=== PATIENT | male | born 2005 | race Two or more races ===

== ENCOUNTER 2024-12-25 16:14 | Emergency (ER) | payer MEDICAID, SELFPAY ==
[2024-12-25 16:28] VITALS: BP 122/107; PULSE 88; RESP 18; TEMP 37.1; O2SAT 98
--- NOTE | 2024-12-25 16:39 | EDNOTE_ITS ---
Nausea/Vomit./Diarrhea-RME/HPI General Chief complaint: Nausea/Vomiting/Diarrhea Stated complaint: [facility] CLEARANCE Time Seen by Provider: 12/25/24 16:33 Arrival date/time: 12/25/24 16:14 Limitations: no limitations RME / HPI RME / HPI Narrative: 19-year-old male with a history of acid reflux is brought in by local law enforcement for medical clearance. When they checked his vital signs [employer], he had a temp of 100.5 Fahrenheit so he was routed here. Patient states he has a 6-month history of epigastric pain. States he was admitted [facility] 6 months ago for his acid reflux and had endoscopy. He states he is not taking any of his prescribed medications. He does endorse lower GI bleed. States he has bright red blood with bowel movements daily. He states he drinks alcohol 2-3 times a week, when he does drink alcohol, he drinks 24 beers at a time. He states he used to use cocaine but has not used that in 6 months. He denies any other chronic medical illness. Denies any drug allergies. Related Data Previous Rx's ?Medication ?Instructions ?Recorded omeprazole 40 mg capsule,delayed 40 mg PO QDAY #30 cap s 12/25/24 release Review of Systems Review of Systems Systems Reviewed: All systems reviewed, normal except as documented ED Exam General Limitations: Present no limitations General appearance: Present alert Head Head exam: Present atraumatic Eye Eye exam: Present normal appearance, PERRL and EOMI ENT ENT exam: Present normal exam, normal oropharynx and mucous membranes moist Neck Neck exam: Present normal inspection, full ROM and trachea midline Chest Chest inspection: Present normal inspection and symmetric chest wall rise Respiratory Respiratory exam: Present normal lung sounds bilaterally Cardiovascular Cardiovascular exam: Present regular rate, normal rhythm and normal heart sounds Abdominal Exam Abdominal exam: Present soft and normal bowel sounds; Absent distention, guarding, rebound or rigidity Rectal Exam Rectal exam: Present normal inspection, normal rectal tone, heme (-) stool and other (Exam performed with male tech present. Please officer present during the exam.) Extremities Exam Extremities exam: Present normal inspection and full ROM Back Exam Back exam: Present normal inspection and full ROM Neurological Exam Neurological exam: Present alert, oriented X3 and CN II-XII intact Psychiatric Psychiatric exam: Present normal affect and normal mood Skin Skin exam: Present warm, dry, intact and normal color Course Quality Measures none Orders Category Date Time Status Occult Blood,Stool (Nursing) ONCE Care 12/25/24 16:34 Active Alcohol, Blood Medical Stat Lab 12/25/24 17:26 Completed CBC Stat Lab 12/25/24 17:26 Completed CMP [Comprehensive Metabolic Panel] Stat Lab 12/25/24 17:26 Completed Drug Screen,Urine Stat Lab 12/25/24 17:40 Completed Lipase Stat Lab 12/25/24 17:26 Completed UA [Urinalysis] Stat Lab 12/25/24 17:40 Completed Famotidine [Pepcid] Med 12/25/24 16:33 Pending 20 mg PO X1 ONE Ondansetron Odt [Zofran Odt] Med 12/25/24 16:33 Pending 4 mg PO X1 ONE Pantoprazole [Protonix] Med 12/25/24 16:33 Pending 40 mg PO X1 ONE Vital Signs Vital signs: Vital Signs Temperature 98.8 F 12/25/24 16:28 Pulse Rate 88 12/25/24 16:28 Respiratory Rate 18 12/25/24 16:28 Blood Pressure 122/107 H 12/25/24 16:28 Pulse Oximetry (%) 98 12/25/24 16:28 Oxygen Delivery Method Room Air 12/25/24 16:28 Nausea/Vomiting/Diarrhea MDM Narrative MDM Narrative:: 19-year-old male who is brought in for medical screening exam is here today with belly pain. He states she has had chronic epigastric pain since approximately July this year. He states he was admitted in the past at another hospital had endoscopy. He is not take any medications. He states he has a history of ulcers but no other chronic medical illness. His CBC reveals no leukocytosis and his H&H is stable. Metabolic panel reveals mildly elevated liver enzymes, ALT is 56, alk phos is 119. Patient was restarted on a proton pump inhibitor. He is medically cleared for police custody. Patient data External records reviewed:: None Clinical information provided by:: patient Social determinants that could affect healthcare access:: none Patient has the following chronic illnesses:: GERD How is presenting disease/condition affected by chronic disease/condition?: exacerbated by Evaluation data The following diagnostics were reviewed and interpreted by me:: lab results Lab and/or radiology exams considered but not ordered:: n/a Interpretation Summary: Mild leukocytosis, H&H is stable Medications / Prescriptions Medications / Prescriptions considered but not ordered:: n/a Medication administrations:: Medication Administration History Famotidine (Famotidine 20 Mg Tablet) 20 mg PO X1 ONE Stop: 12/25/24 16:34 Ondansetron HCl (Ondansetron Odt 4 Mg Tabrap) 4 mg PO X1 ONE; Protocol Stop: 12/25/24 16:34 Pantoprazole Sodium (Pantoprazole 40 Mg Tablet) 40 mg PO X1 ONE Stop: 12/25/24 16:34 see above Consultations Consultation(s) initiated? (list below): No Diagnosis Nausea Differential Diagnosis: gastroenteritis and dehydration Most likely diagnosis given after review of the tests above:: GERD Admission Indicated Admission indicated?: indicated Admission Request Was there a request for admission?: No Disposition Plan Disposition Plan: Discharge Discharge Attestation Discharge Attestation: The patient and all family members were given an opportunity to ask questions and understood the discharge instructions. Discharge instructions specifically effects, indications for sooner follow up or return to the emergency department, and the expected course of current diagnosis. Patient condition: Stable Discharge Plan Plan Patient Disposition: Senior Living/Court/Law Patient condition on transfer: Stable Prescriptions/Referrals Prescriptions/Med Rec: New omeprazole 40 mg capsule,delayed release(DR/EC) 40 mg PO QDAY Qty: 30 0RF Referrals: No Primary/Family,Physician [Primary Care Provider] - In 1 week Problem List Clinical Impression: Chronic GERD Patient/Caregiver Discharge Instructions Education Materials: ED GERD (Adult) Additional Instructions: Restart a daily proton pump inhibitor. Prescription is provided. Follow-up with your primary doctor as needed. Return to the emergency room as needed for any worsening or emergent changes. You are medically cleared for police custody. Print Language: Kenyan
[2024-12-25 17:42] LABS: Basophils # (Auto) 0.1 Thou/mm3 (0.0-0.2); Basophils % (Auto) 1 % (0-2.5); Eosinophils % (Auto) 0 % (0-10); Hemoglobin 16.5 g/dL (13.5-16.0); Immature Granulocytes % (Auto) 0 % (0-0); Immature Granulocytes Auto 0.05 Thou/mm3 (0.00-0.00); Lymphocytes # (Auto) 0.7 Thou/mm3 (1.0-4.8); Lymphocytes % (Auto) 6 % (10-50); Mean Corpuscular HGB Conc 35.1 g/dl (31.0-37.0); Mean Corpuscular Hemoglobin 31.4 pg (25.0-35.0); Mean Corpuscular Volume 90 fL (80-100); Monocytes # (Auto) 0.6 Thou/mm3 (0.0-0.8); Monocytes % (Auto) 5 % (0-12); Neutrophils # (Auto) 11.3 Thou/mm3 (1.8-7.7); Neutrophils % (Auto) 88 % (37-80); Nucleated Red Blood Cell % 0 /100 WBC (0); Platelet Count 240 Thou/mm3 (140-440); RDW Standard Deviation 42.8 fL (35.1-43.9); Red Blood Count 5.25 Miln/mm3 (4.50-5.90); White Blood Count 12.8 Thou/mm3 (4.5-11.0)
[2024-12-25 17:57] LABS: Alanine Aminotransferase 56 U/L (10-49); Albumin, Serum 4.8 gm/dL (3.5-5.0); Albumin/Globulin Ratio 1.9 (1.2-2.2); Alcohol, Blood Medical < 3.0 mg/dL (0-10.0); Alkaline Phosphatase 119 U/L (46-116); Anion Gap 8 (7-16); Aspartate Amino Transferase 29 U/L (0-34); BUN/Creatinine Ratio 8 Ratio (12-20); Bilirubin,Total 0.7 mg/dL (0.3-1.2); Blood Urea Nitrogen 8 mg/dL (9-23); Calcium 9.7 mg/dL (8.3-10.6); Calcium (Corrected) 9.7 mg/dL (8.5-10.1); Carbon Dioxide 27.7 mMol/L (20.0-31.0); Chloride 105 mMol/L (98-107); Globulin 2.5 gm/dL (2.3-3.5); Glucose 106 mg/dL (74-106); Lipase 23 U/L (12-53); Osmolality,Calculated 279 (275-295); Potassium 4.2 mMol/L (3.4-5.1); Sodium 141 mMol/L (136-145); Total Protein 7.3 gm/dL (5.7-8.2); eGFR > 60 See Note
[2024-12-25 18:01] VITALS: BMI 34.8
[2024-12-25 18:08] LABS: Collection Type, Urine Voided
[2024-12-25 18:32] LABS: Bacteria,Urine Rare; Bilirubin,Urine Negative (Negative); Blood,Urine Negative (Negative); Clarity,Urine Clear (Clear/Hazy); Color,Urine Yellow (Lt Yel-Yel); Glucose, Urine Negative (Negative); Ketones,Urine Negative (Negative); Leukocyte Esterase,Urine Negative (Negative); Nitrite,Urine Negative (Negative); Protein,Urine Trace (Neg - Trace); RBC,Urine 3 /hpf (0-3); Specific Gravity,Urine 1.023 (1.001-1.035); Squamous Epithelial Cell,Urine < 1 /hpf (0-5); Urobilinogen,Urine Negative mg/dL (0.0-1.0); WBC,Urine 1 /hpf (0-5)
[2024-12-25 18:42] LABS: Amphetamine/Methamp Scrn,U Negative (Negative); Barbiturate Screen,Urine Negative (Negative); Benzodiazepines Screen,Urine Negative (Negative); Benzoylecgonine Screen, Ur Negative (Negative); Fentanyl Screen,Urine Negative (Negative); Opiate Screen,Urine Negative (Negative); THC Screen,Urine Positive (Negative)
[2024-12-25 19:27] VITALS: BP 163/93; PULSE 87; RESP 17; O2SAT 99
== END 2024-12-25 19:31 ==
PROVIDERS: Physician Assistant Medical; Emergency Provider Family Medicine
DX: K21.9 Gastro-esophageal reflux disease without esophagitis (principal)
CPT/HCPCS: 36415; 80053; 80307; 80320; 81001; 83690; 85025; 99283; G0480

== ENCOUNTER 2024-12-25 23:57 | Emergency (ER) | payer MEDICAID, SELFPAY ==
[2024-12-26] VITALS (7 sets, daily range): BP systolic 118–154; BP diastolic 68–89; PULSE 50–73; RESP 16–18; TEMP 36.6–37.2; O2SAT 94–99; BMI 29.0
--- NOTE | 2024-12-26 03:46 | EKG_ITS ---
[facility] Test Date: 2024-12-26 Pat Name: ROX TRIPP Department: Room: - Gender: Male Instrument/Control Technician: : 2005 Requested By: Faith Marroquin Order Number: [id number] Reading MD: Faith Marroquin Measurements Intervals [place] Rate: 54 P: -9 VT: 122 QRS: 71 QRSD: 97 T: 56 QT: 447 QTc: 425 Interpretive Statements SINUS BRADYCARDIA WITH SINUS ARRHYTHMIA No previous ECG available for comparison /store/S0/[id number]/ecg/[id number].pdf
--- NOTE | 2024-12-26 03:46 | PD.EDABDPN ---
ED Abdominal Pain RME/HPI General Chief Complaint: Abdominal Pain Stated complaint: VOMITING BLOOD Arrival date/time: 12/25/24 23:57 RME / HPI RME / HPI narrative: DR BREEN MAIN ED EVALUATION: 19 y/o male with Hx of GERD BIB [facility] from [facility] presents to ED c/o chest and epigastric abdominal pain with multiple events of vomiting blood x just [employer]. Patient also reports dark and foul smelling urine. Patient was seen earlier today but was discharged without medication. Denies dysuria. Patient denies bloody stool, tarry stool or any other associated symptoms or aggravating factors. No modifying factors, no radiation, no migration. No pain reported overall. No other concerns or complaints expressed at this time. Related Data Previous Rx's ?Medication ?Instructions ?Recorded omeprazole 40 mg capsule,delayed 40 mg PO QDAY #30 caps 12/25/24 release Allergies Allergy/AdvReac Type Severity Reaction Status Date / Time No Known Allergies Allergy Verified 12/26/24 04:39 Review of Systems Review of Systems Systems Reviewed: All systems reviewed, normal except as documented Past Medical History Past Medical History GASTROINTESTINAL: Positive Gastroesophageal Reflux Disease Social History SMOKING STATUS: Current every day smoker ED Exam Narrative Physical exam: GENERAL APPEARANCE: alert and oriented x 4, well-developed, well-nourished, no acute distress VITALS: All vitals were reviewed and the pulse ox is 99% on room air, which is normal according to my interpretation. HEENT: Normocephalic, atraumatic; pupils equal, round, reactive to light; EOMI; mucous membranes pink, moist; oropharynx clear NECK: Supple LUNGS: CTABL; no wheezes, no rales, no rhonchi HEART: Regular rate, regular rhythm; normal S1, S2; no murmurs ABDOMEN: non distended; normal BS; soft, mild epigastric tenderness, no guarding, no rebound; no masses, no organomegaly, no hernia BACK: no CVA tenderness EXTREMITIES: atraumatic; no edema NEUROLOGIC: awake; alert and oriented x4; cranial nerves II-XII grossly intact; no focal sensory or motor deficits PSYCHIATRIC: appropriate mood and affect SKIN: warm, dry, normal color; no rashes Course Quality Measures none Orders Category Date Time Status CT Screening NOW Care 12/26/24 06:04 Active EKG (ED ONLY) *Do not use* NOW Care 12/26/24 03:46 Completed IV [Insert IV] NOW Care 12/26/24 04:52 Active Occult Blood,Stool (Nursing) NOW Care 12/26/24 03:[address] abdomen pelvis w con Stat Exams 12/26/24 06:04 Ordered EKG (ED Only) Stat Exams 12/26/24 03:46 Draft CBC Stat Lab 12/26/24 04:45 Completed CMP [Comprehensive Metabolic Panel] Stat Lab 12/26/24 04:45 Completed Lipase Stat Lab 12/26/24 04:45 Completed PT [Prothrombin Time with INR] Stat Lab 12/26/24 04:45 Completed PTT [Partial Thromboplastin Time] Stat Lab 12/26/24 04:45 Completed Troponin I Stat Lab 12/26/24 04:45 Completed Type and Screen Stat Lab 12/26/24 04:45 Completed UA, C/S IF [Urinalysis, C/S if Indicated] Stat Lab 12/26/24 03:48 Ordered Pantoprazole Inj [Protonix Inj] Med 12/26/24 03:47 Discontinued 80 mg IVP X1 ONE Pantoprazole/Ns 80Mg IV Premix [Protonix/NS 80mg IV Med 12/26/24 03:47 Active Premix] 80 mg in 100 ml IV X1 Vital Signs Vital signs: Vital Signs Temperature 98.5 F 12/26/24 00:00 Pulse Rate 67 12/26/24 00:00 Respiratory Rate 17 12/26/24 00:00 Blood Pressure 154/89 H 12/26/24 00:00 Pulse Oximetry (%) 99 12/26/24 00:00 Oxygen Delivery Method Room Air 12/26/24 00:00 Abdominal Pain MDM MDM Narrative MDM Narrative:: Scribe Attestation: I, Irais Ordoñez am scribing for and in the presence of Dr. Breen. Provider Notation: Although this document has been carefully reviewed, there may still be some phonetic and other typographical errors.? These errors are purely grammatical due to imperfections in the software program and should not be construed in any way to? compromise the substance of the patient's medical care during this visit. 0600: Care signed out to [facility] day shift provider. Past medical, surgical, social and family history reviewed. Vitals and home medications reviewed. Results and treatment plan discussed. They will assume the care of the patient at this time and will follow the patient, pending CT and final disposition. Patient data External records reviewed:: [facility] previous records (Reviewed records from 12/25/24. Patient was seen for Chronic GERD.) and Other (specify) ([employer]) Clinical information provided by:: patient and law enforcement Social determinants that could affect healthcare access:: housing (Incarceration) Patient has the following chronic illnesses:: GERD How is presenting disease/condition affected by chronic disease/condition?: exacerbated by Evaluation data The following diagnostics were reviewed and interpreted by me:: lab results and EKG tracing(s) (EKG manual reading, my interpretation: sinus bradycardia, rate: 54 bpm, no ST elevation, no acute ischemic changes, interpreted as normal) Lab and/or radiology exams considered but not ordered:: None Interpretation Summary: Refer to MDM Medications / Prescriptions Medications or Prescriptions considered but not ordered:: None Medication administrations:: Medication Administration History Pantoprazole Sodium (Protonix/Ns 80mg Iv Premix) 80 mg in 100 mls @ 10 mls/hr IV X1 ONE Stop: 12/26/24 13:46 Last Admin: 12/26/24 05:00 Dose: 10 mls/hr Documented By: CVL Discontinued Medications Pantoprazole Sodium (Pantoprazole Inj 40 Mg Vial) 80 mg IVP X1 ONE Stop: 12/26/24 03:48 Last Admin: 12/26/24 04:59 Dose: 80 mg Documented By: CVL See above if any Consultations Consultation(s) initiated? (list below): No Diagnosis Differential diagnosis abdominal pain: abdominal pain, acute appendicitis, constipation, diverticulitis, gastroenteritis, pancreatitis, small bowel obstruction and other (Gastritis, GERD with exacerbation, Peptic Ulcer) Most likely diagnosis given after review of the tests above:: Hematemesis Admission Indicated Admission indicated?: not indicated Explain why admission is indicated or not indicated:: Pending CT. Admission Request Was there a request for admission?: No Disposition Plan Disposition Plan: other (specify) (Sign-out to oncoming ED physician at 6 AM.) Discharge Plan Prescriptions/Referrals Prescriptions/Med Rec: No Action omeprazole 40 mg capsule,delayed release(DR/EC) 40 mg PO QDAY Qty: 30 0RF Referrals: No Primary/Family,Physician [Primary Care Provider] - In 1 week Problem List Clinical Impression: Hematemesis Patient/Caregiver Discharge Instructions Print Language: Chinese
[2024-12-26] MEDS: PANTOPRAZOLE INJ 40 MG VIAL 80 MG IVP (04:59)
[2024-12-26] MEDS: PANTOPRAZOLE/NS 80MG IV PREMIX 80 MG/100 ML BAG 10 MG IV (05:00)
[2024-12-26 05:05] LABS: Basophils % (Auto) 0 % (0-2.5); Eosinophils % (Auto) 0 % (0-10); Hematocrit 46.8 % (41.0-53.0); Hemoglobin 16.6 g/dL (13.5-16.0); Immature Granulocytes % (Auto) 0 % (0-0); Immature Granulocytes Auto 0.03 Thou/mm3 (0.00-0.00); Lymphocytes # (Auto) 1.5 Thou/mm3 (1.0-4.8); Lymphocytes % (Auto) 18 % (10-50); Mean Corpuscular HGB Conc 35.5 g/dl (31.0-37.0); Mean Corpuscular Hemoglobin 31.3 pg (25.0-35.0); Mean Corpuscular Volume 88 fL (80-100); Monocytes # (Auto) 0.7 Thou/mm3 (0.0-0.8); Monocytes % (Auto) 8 % (0-12); Neutrophils # (Auto) 6.1 Thou/mm3 (1.8-7.7); Neutrophils % (Auto) 72 % (37-80); Nucleated Red Blood Cell % 0 /100 WBC (0); Platelet Count 245 Thou/mm3 (140-440); RDW Standard Deviation 43.2 fL (35.1-43.9); Red Blood Count 5.31 Miln/mm3 (4.50-5.90); White Blood Count 8.4 Thou/mm3 (4.5-11.0)
[2024-12-26 05:21] LABS: Partial Thromboplastin Time 27.9 Seconds (22.0-36.0); Prothrombin Time 11.4 Seconds (9.0-12.2)
[2024-12-26 05:24] LABS: Alanine Aminotransferase 56 U/L (10-49); Albumin, Serum 5.2 gm/dL (3.5-5.0); Alkaline Phosphatase 125 U/L (46-116); Anion Gap 10 (7-16); Aspartate Amino Transferase 27 U/L (0-34); BUN/Creatinine Ratio 9 Ratio (12-20); Bilirubin,Total 0.8 mg/dL (0.3-1.2); Blood Urea Nitrogen 10 mg/dL (9-23); Calcium 10.1 mg/dL (8.3-10.6); Calcium (Corrected) 10.1 mg/dL (8.5-10.1); Carbon Dioxide 29.2 mMol/L (20.0-31.0); Chloride 102 mMol/L (98-107); Creatinine (Component) 1.1 mg/dL (0.6-1.3); Estimated Creatinine Clearance 107.5 mL/min (>60); Globulin 2.6 gm/dL (2.3-3.5); Glucose 102 mg/dL (74-106); Lipase 26 U/L (12-53); Osmolality,Calculated 280 (275-295); Potassium 4.1 mMol/L (3.4-5.1); Sodium 141 mMol/L (136-145); Total Protein 7.8 gm/dL (5.7-8.2); Troponin I < 0.002 ng/mL (0.0-0.045); eGFR > 60 See Note
--- NOTE | 2024-12-26 05:45 | PC.NURSE ---
PT IS INCARCERATED, WHILE IN RETIREMENT PT C/O ABD PAIN AND BEEN VOMITING WITH BLOOD, WAS ALREADY SEEN EARLIER IN ER.
--- NOTE | 2024-12-26 06:04 | XR_ITS ---
Examination: CT abdomen with intravenous contrast CT pelvis with intravenous contrast 2-D coronal reconstructions 2-D sagittal reconstructions Date and time of exam:December 26, 2024 0809 hours INDICATIONS: Abdominal pain vomiting blood today. CTDI: vol (mGy) 11.1 DLP: (mGycm) 685 Technique: Multiple axial sections of the abdomen and pelvis have been obtained. 64 slice high-resolution scanner used. 3 mm axial sections have been obtained, post intravenous injection 60 cc Isovue-370 2-D sagittal, coronal reconstructions obtained. Low dose protocols were performed. One or more of the following dose reduction techniques were used; automated exposure control, adjustment of the mA and/or KV according to patient size, use of iterative reconstruction technique. Findings: No aspiration pneumonia No focal liver or splenic lesions No gallstones No pancreatic or adrenal mass No renal or ureteral calculi, no hydronephrosis Aorta normal size Tiny fat-containing umbilical hernia Normal appendix No bowel obstruction Colonic diverticulosis, no diverticulitis Urinary bladder intact No prostatomegaly IMPRESSION: No aspiration pneumonia Negative for pancreatitis Normal appendix Colonic diverticulosis, no diverticulitis
--- NOTE | 2024-12-26 07:05 | PD.EDADDENDU ---
Emergency Room Addendum Addendum Narrative: 0600: Care assumed from Dr. Breen, the previous shift emergency physician. Past medical, surgical, social and family history reviewed. Vitals and home medications reviewed. I will assume the care of the patient at this time, pending diagnostic tests and final disposition. Please refer to the emergency department record for history and examination from initial visit.? Physical exam by me shows patient under no acute distress at this time. Plan to discharge on pepsin and zofran. 0938: Patient remains clinically stable throughout the emergency department visit. Re-assessment at the time of disposition demonstrates that the patient is in no acute distress. We reviewed all the results, analysis, and treatment plans. Patient is amenable to discharge. Strict return precautions were outlined. Patient was discharged in stable condition. Diagnoses: -Hematemesis -Gastritis Results Objective Laboratory: Laboratory Last Values WBC 8.4 Thou/mm3 (4.5-11.0) 12/26/24 04:45 RBC 5.31 Miln/mm3 (4.50-5.90) 12/26/24 04:45 Hgb 16.6 g/dL (13.5-16.0) H 12/26/24 04:45 Hct 46.8 % (41.0-53.0) 12/26/24 04:45 MCV 88 fL (80-100) 12/26/24 04:45 MCH 31.3 pg (25.0-35.0) 12/26/24 04:45 MCHC 35.5 g/dl (31.0-37.0) 12/26/24 04:45 RDW Std Deviation 43.2 fL (35.1-43.9) 12/26/24 04:45 Plt Count 245 Thou/mm3 (140-440) 12/26/24 04:45 Neut % (Auto) 72 % (37-80) 12/26/24 04:45 Lymph % (Auto) 18 % (10-50) 12/26/24 04:45 [place] % (Auto) 8 % (0-12) 12/26/24 04:45 Eos % (Auto) 0 % (0-10) 12/26/24 04:45 Baso % (Auto) 0 % (0-2.5) 12/26/24 04:45 Neut # (Auto) 6.1 Thou/mm3 (1.8-7.7) 12/26/24 04:45 Lymph # (Auto) 1.5 Thou/mm3 (1.0-4.8) 12/26/24 04:45 [place] # (Auto) 0.7 Thou/mm3 (0.0-0.8) 12/26/24 04:45 Eos # (Auto) 0.0 Thou/mm3 (0.0-0.5) 12/26/24 04:45 Baso # (Auto) 0.0 Thou/mm3 (0.0-0.2) 12/26/24 04:45 Immature Gran # (Auto) 0.03 Thou/mm3 (0.00-0.00) H 12/26/24 04:45 Absolute Nucleated RBC 0.00 Thou/mm3 (0.00-0.00) 12/26/24 04:45 Immature Gran % 0 % (0-0) 12/26/24 04:45 Nucleated RBC % 0 /100 WBC (0) 12/26/24 04:45 PT 11.4 Seconds (9.0-12.2) 12/26/24 04:45 INR 1.0 (0.9-1.3) 12/26/24 04:45 APTT 27.9 Seconds (22.0-36.0) 12/26/24 04:45 Sodium 141 mMol/L (136-145) 12/26/24 04:45 Potassium 4.1 mMol/L (3.4-5.1) 12/26/24 04:45 Chloride 102 mMol/L (98-107) 12/26/24 04:45 Carbon Dioxide 29.2 mMol/L (20.0-31.0) 12/26/24 04:45 Anion Gap 10 (7-16) 12/26/24 04:45 BUN 10 mg/dL (9-23) 12/26/24 04:45 Creatinine 1.1 mg/dL (0.6-1.3) 12/26/24 04:45 Estim Creat Clear Calc 107.5 mL/min (>60) 12/26/24 04:45 eGFR > 60 See Note (60-) 12/26/24 04:45 BUN/Creatinine Ratio 9 Ratio (12-20) L 12/26/24 04:45 Glucose 102 mg/dL (74-106) 12/26/24 04:45 Calculated Osmolality 280 (275-295) 12/26/24 04:45 Calcium 10.1 mg/dL (8.3-10.6) 12/26/24 04:45 Corrected Calcium 10.1 mg/dL (8.5-10.1) 12/26/24 04:45 Total Bilirubin 0.8 mg/dL (0.3-1.2) 12/26/24 04:45 AST 27 U/L (0-34) 12/26/24 04:45 ALT 56 U/L (10-49) H 12/26/24 04:45 Alkaline Phosphatase 125 U/L (46-116) H 12/26/24 04:45 Troponin I < 0.002 ng/mL (0.0-0.045) 12/26/24 04:45 Total Protein 7.8 gm/dL (5.7-8.2) 12/26/24 04:45 Albumin 5.2 gm/dL (3.5-5.0) H 12/26/24 04:45 Globulin 2.6 gm/dL (2.3-3.5) 12/26/24 04:45 Albumin/Globulin Ratio 2.0 (1.2-2.2) 12/26/24 04:45 Lipase 26 U/L (12-53) 12/26/24 04:45 Stool Occult Blood Negative (Negative) 12/26/24 07:20 Blood Type A Positive 12/26/24 04:45 Antibody Screen NEGATIVE 12/26/24 04:45 Blood Bank Wristband ID Yes 12/26/24 04:45 Imaging: Procedure(s): CT abdomen pelvis w con Accession Number(s): [id number] cc: Derrick Vasquez MD; NO PRIMARY/FAMILY,PHYSICIAN; Faith Breen MD~ Examination: CT abdomen with intravenous contrast CT pelvis with intravenous contrast 2-D coronal reconstructions 2-D sagittal reconstructions Date and time of exam:December 26, 2024 0809 hours INDICATIONS: Abdominal pain vomiting blood today. CTDI: vol (mGy) 11.1 DLP: (mGycm) 685 Technique: Multiple axial sections of the abdomen and pelvis have been obtained. 64 slice high-resolution scanner used. 3 mm axial sections have been obtained, post intravenous injection 60 cc Isovue-370 2-D sagittal, coronal reconstructions obtained. Low dose protocols were performed. One or more of the following dose reduction techniques were used; automated exposure control, adjustment of the mA and/or KV according to patient size, use of iterative reconstruction technique. Findings: No aspiration pneumonia No focal liver or splenic lesions No gallstones No pancreatic or adrenal mass No renal or ureteral calculi, no hydronephrosis Aorta normal size Tiny fat-containing umbilical hernia Normal appendix No bowel obstruction Colonic diverticulosis, no diverticulitis Urinary bladder intact No prostatomegaly IMPRESSION: No aspiration pneumonia Negative for pancreatitis Normal appendix Colonic diverticulosis, no diverticulitis Dictated By: Derrick Vasquez MD
--- NOTE | 2024-12-26 07:20 | PC.NURSE ---
REPORT RECEIVED AND CARE ASSUMED. PER REPORT, PT FROM CORRECTION WITH C/O VOMITING BLOOD X 2 DAYS AND SEEN IN THE E.D. YESTERDAY FOR SAME. PER REPORT PT HAS NOT VOMITED SINCE ARRIVAL
[2024-12-26 07:48] LABS: OBS Developer Lot # 4-24 551749; OBS Performed By LEECE; OBS QC OK? Yes; Occult Blood, Stool Negative (Negative)
--- NOTE | 2024-12-26 08:57 | PC.NURSE ---
DR. CHEN INFORMED THAT PT REFUSING TO VOID
--- NOTE | 2024-12-26 09:14 | PC.NURSE ---
PT REMAINS IN WRIST AND ANKLE SHACKLES WITH [employer] OFFICER AT BEDSIDE
== END 2024-12-26 10:45 ==
PROVIDERS: Emergency Medicine; Emergency Provider Emergency Medicine
DX: K92.0 Hematemesis (principal); K57.30 Diverticulosis of large intestine without perforation or abscess without bleeding; K29.70 Gastritis, unspecified, without bleeding
CPT/HCPCS: 36415; 74177; 80053; 81001; 82270; 83690; 84484; 85025; 85610; 85730; 86850; 86900; 86901; 93005; 96365; 96366; 96375; 99285; A4649; J2470; J3490; Q9967